=== PATIENT | male | born 2000 | race Caucasian/White ===

== ENCOUNTER 2023-10-21 13:08 | Emergency (ER) | payer OTHER, SELFPAY ==
[2023-10-21 13:11] VITALS: BP 136/85; BMI 27.4
--- NOTE | 2023-10-21 14:33 | ED.GENMED ---
History of Present Illness
General
Chief Complaint: Back Pain
Source: patient
Time Seen by Provider: 10/21/23 14:14
Travel History
Have you had any contact with someone who has COVID-19?: No
Do you have any symptoms of coronavirus? Fever > 100 degrees, chills, cough, shortness of breath, sore throat, loss of taste or smell, muscle aches, or headache?: No
History of Present Illness
History of Present Illness:
23-year-old male with past medical history of autism, schizophrenia and scoliosis presenting to the emergency department for evaluation of back pain that began mildly yesterday, today was worse with the patient noticing he had a small area of
redness to his lower back prompting him to come to the ER today. Patient states that he last took Tylenol around 11:30 AM without much relief. Patient is here with his mother who states her main concern is that patient has a history of urine
infections/kidney infection and was concerned that patient could be having this although he does not have any fevers or dysuria which is usually symptoms he gets with his action. Patient denies any chills, rigors, nausea or vomiting. He states he
cannot think of what may have caused his back pain as he denies any heavy lifting/bending/twisting. Patient is previously followed with [facility] for his scoliosis but it is unclear as to the last time when the patient saw them in follow-up.
Past History
Past History
ED Past Medical History: Psychiatric (Autism/schizophrenia)
ED Past Surgical History: Orthopedic
Social History
Tobacco: Non-smoker
Alcohol: None
Drug: None
Personal: Single
Living: with family
Review of Systems
Review of Systems
All Other Systems: ROS reviewed and negative except as documented in HPI and ROS
Phy Exam
Physical Exam
Physical Exam:
GENERAL: Alert , in no apparent distress
EYE: clear conjunctiva b/l
NECK: Supple
ENT: o/p clr, mmm.
BACK: Normal range of motion, diffusely tender paralumbar region bilateral, no midline bony tenderness, no rashes/erythema observed. Mother also notes that the area they noticed earlier today is seemingly now resolved
NEUROLOGICAL: Alert and oriented, no focal neuro deficits. Patellar deep tendon reflexes intact and equal bilaterally, sensation grossly intact and equal to light touch bilateral lower extremities, negative straight leg raise bilateral
SKIN: Warm and dry, skin intact.
MUSCULOSKELETAL: No edema, well perfused. EHL intact bilaterally
PSYCH: Normal and appropriate interaction.
Scores
Heart Failure Risk
Heart Failure Risk Score: Not Applicable
Heart Score for Chest Pain Patients
STEMI patient?: Not applicable
Withdrawal Assessment of Alcohol
Withdrawal Assessment Completed?: Not applicable
Course
Orders/Labs/Results
Orders:
Orders
10/21/23 14:25
Diazepam [Valium] 5 mg PO NOW STA
Ibuprofen [Motrin] 600 mg PO NOW STA
CR Lumbar Spine Comp Min 4 Vw* Urgent
Comment:
Reason For Exam: low back pain, hx scoliosis
10/21/23 15:27
Urinalysis Reflex To Culture Urgent
Date Specimen was Collected: 10/21/23
Time Specimen was Collected: 14:37
Urine Microscopic Reflex Cult Urgent
Urine Culture Urgent
BRIONNA Source: U
Specimen Description:
Date Specimen was Collected: 10/21/23
Time Specimen was Collected: 14:37
Abnormal Lab Results
10/21/23
15:27
Urine Bilirubin 1+ A
(Negative)
Leukocyte Esterase Rfl 1+ A
(Negative)
Urine Bacteria (Reflex) Few A
(Negative)
Vital Signs
Initial and Last Documented VS:
Initial Vital Signs
Temp Pulse Resp BP Pulse Ox
98.0 F 96 16 136/85 98
10/21/23 13:11 10/21/23 13:11 10/21/23 13:11 10/21/23 13:11 10/21/23 13:11
Last Documented Vital Signs
Temp Pulse Resp BP Pulse Ox
98.6 F 62 16 115/65 99
10/21/23 16:41 10/21/23 16:41 10/21/23 16:41 10/21/23 16:41 10/21/23 16:41
MDM/Problems Addressed
Differential Diagnosis Includes:
Exacerbation of scoliosis, lumbar strain, less concern for infectious etiology
MDM/Problems Addressed:
23-year-old male present emergency department for atraumatic back pain x 24 hours. Last took Tylenol around 11:30 AM with minimal relief. Pain does seem to be exacerbated with movement as well as palpation of the paralumbar region. Mother was
concerned for possible urine infection however given lack of symptoms I do feel this is less likely. Will check a urinalysis however. X-ray of the lumbosacral region ordered. Will treat with Motrin and Valium. Anticipate discharge home and
outpatient follow-up.
*Radiology
Radiology exam reviewed: preliminary read by ED provider (no fx)
*Pulse Oximetry
Patient hypoxic: no
*Critical Care Note
Total Time (30-74mins, 75-104mins- exclusive of procedures): Not Applicable
Patient Management
Escalation/DeEscalation of care consider admission/obs:
Imaging unremarkable and urinalysis without signs of infection. Culture had been sent. Patient will follow-up with primary care provider. Prescription for muscle relaxant provided. Continue with NSAIDs as needed for pain. Aware of return
precautions but otherwise stable for discharge home.
ED Attending Note
-
Portions of this chart may have been created with voice recognition software.� Occasional wrong word or��sound alike� substitutions may have occurred due to the inherent limitations of voice recognition software.
Discharge Plan
Departure
Patient Disposition: Home (Routine Discharge)
Date of Disposition: 10/21/23
Time of Disposition: 16:18
Patient with high blood pressure during this ER visit?: No
Discharge Problem:
Dorsalgia of thoracolumbar region
Instructions: Low Back Pain (DC)
Prescriptions:
New
cyclobenzaprine 5 mg tablet
5 mg PO BID PRN (Reason: muscle spasm) Qty: 8 0RF
Referrals:
Tyra Cunningham MD [Family Provider] -
Interventions
Interventions:
*Risk Screen - Suicide Last Done: 10/21/23 13:11
*General Assessment Last Done: 10/21/23 14:31
*Neglect/Abuse Screening Last Done: 10/21/23 13:11
ED- Fall Risk Assessment Last Done: 10/21/23 14:31
*ED COVID-19 Vaccine History Last Done: 10/21/23 13:11
*Nursing Disposition Last Done: 10/21/23 16:41
ED-Musculoskeletal Assessment Last Done: 10/21/23 14:31
Discharge Date and Time
Discharge Date/Time: 10/21/23 16:42
[2023-10-21] MEDS: MOTRIN 600 MG PO (14:38)
[2023-10-21] MEDS: VALIUM 5 MG PO (14:39)
[2023-10-21 16:08] LABS: Urine Albumin Trace (Neg - Trace); Urine Bilirubin 1+ (Negative); Urine Character Clear (Clear); Urine Color Yellow; Urine Glucose Negative (Negative); Urine Ketone Negative (Negative); Urine Leukocyte 1+ (Negative); Urine Nitrite Negative (Negative); Urine Occult Blood Negative (Negative); Urine Specific Gravity 1.015 (<1.030); Urine Urobilinogen 1+ (Neg - 1+)
[2023-10-21 16:26] LABS: Urine Bacteria Few (Negative); Urine Red Blood Cell 0-2 /HPF (0-2)
[2023-10-21 16:41] VITALS: BP 115/65
== END 2023-10-21 16:42 | disposition home or self-care (01) ==
LOC: EMR 13:08
PROVIDERS: Physician Assistant Medical; EMERGENCY PHYSICIAN Emergency Medicine; FAMILY PHYSICIAN Internal Medicine
DX: M54.6 Pain in thoracic spine (principal); F84.0 Autistic disorder; F20.9 Schizophrenia, unspecified; M41.9 Scoliosis, unspecified
CPT/HCPCS: 99284; 72110; 81003; 81015; 87086

== ENCOUNTER 2025-01-07 12:40 | Emergency (ER) | payer OTHER, SELFPAY ==
[2025-01-07 12:41] VITALS: BP 140/91
[2025-01-07 15:00] VITALS: BP 136/75
--- NOTE | 2025-01-07 15:09 | ED.GENMED ---
History of Present Illness
General
Chief Complaint: Breathing Problem
Source: patient
Exam Limitations: none
Time Seen by Provider: 01/07/25 13:40
Nursing documentation reviewed up to this point in time: agreed with
History of Present Illness
History of Present Illness:
pt is a 24 y/o M
h/o autism, functional, schizophrenia
here with elevated HR feeling for 4 days and then started with chest congesiton, cough, and pain in his chest with coughing
he says he feels SOB with walking as well
has h/o chronic nasal congestion, no relief with flonase and allergy med otc
has never seen ENT
but started telling mom his HR was high when he was walking around and he felt SOB
then got a cough 2 days ago
has never had asthma/smoking
pt has not had fever, syncope, le swelling, leg pain
fhx of factor v ledien in grandfather
Past History
Past History
ED Past Medical History: Psychiatric (Autism/schizophrenia)
ED Past Surgical History: Orthopedic
Social History
Tobacco: Non-smoker
Alcohol: None
Drug: None
Personal: Single
Living: with family
Review of Systems
Review of Systems
Allergies reviewed?: Yes
All Other Systems: Not applicable
Phy Exam
Physical Exam
Physical Exam:
GENERAL: Alert , in no apparent distress
EYE: pupils equal and reactive
NECK: Supple
ENT: b/l TM s clear, pharynx erythematous but no tonsillar hypertrophy or exudates
CARDIAC: Heart rate in the 90s to low 100s, no murmur appreciated, no edema
LUNGS: No tachypnea, frequent spastic cough with a deep breath, wheezy sounding cough but no otherwise wheezing on exam, no rales
ABDOMEN: Soft, without focal tenderness, no r/g, no cvat, normal bowel sounds
NEUROLOGICAL: Alert and oriented, no focal neuro deficits
SKIN: Warm and dry, skin intact.
MUSCULOSKELETAL: No edema, well perfused.
PSYCH: Normal and appropriate interaction.
Course
Orders/Labs/Results
Orders:
Orders
01/07/25 12:40
ECG [Electrocardiogram (*1)] Urgent
Reason for Study: Chest Pain
01/07/25 12:41
EKG- Treatment ONCE
01/07/25 14:17
Albuterol Nebs [Ventolin Nebules] 2.5 mg INH R NOW STA
01/07/25 15:08
COVID-19 Antigen Urgent
Source: Nasal Swab
Complete Blood Count/With Diff Urgent
Comprehensive Metabolic Panel Urgent
D-Dimer Urgent
Troponin I Urgent
01/07/25 15:40
CR Chest - 2 Views Urgent
Comment:
Reason For Exam: cough, sob
01/07/25 16:27
Dexamethasone Sod Phosphate [Decadron] 10 mg IV NOW STA
Abnormal Lab Results
01/07/25
15:08
RBC 4.69 L 10^6/uL
(4.70-6.10)
Hct 37.8 L %
(39.0-52.0)
Absolute Monos (auto) 0.7 H 10^3/uL
(0.1-0.6)
Monocytes % 12.3 H %
(1.7-9.3)
Chloride 109 H mmol/L
(98-107)
ALT 123 H U/L
(0-50)
01/07/25 15:08
01/07/25 15:08
Vital Signs
Initial and Last Documented VS:
Initial Vital Signs
Temp Pulse Resp BP Pulse Ox
37.0 C 107 15 140/91 96
01/07/25 12:41 01/07/25 12:41 01/07/25 12:41 01/07/25 12:41 01/07/25 12:41
Last Documented Vital Signs
Temp Pulse Resp BP Pulse Ox
36.4 C 81 19 122/79 96
01/07/25 15:27 01/07/25 16:30 01/07/25 16:30 01/07/25 16:21 01/07/25 16:30
MDM/Problems Addressed
Differential Diagnosis Includes:
URI, bronchitis, asthma,
MDM/Problems Addressed:
24y/o M with h/o autism
felt a little short of breath/herat beat was fast for the past few days, no fever, no pain
then developed cough and has pain with coughing ,not brathing
he doesn't feel sob at rst
well appearing
hr low 100s, no fever
end exp wheezing with cough when takes deep breath
no recent travel or h/o DVT/PE, surgeries
not hypxoici
suspect asthmatic bronchtis, pt had asthma as kid
d dimer neg
ekg nonischemic
no pericarditids
trop neg
wbc normal
cxr indep reviewed and clear
d/c home with dex in 48 hours, albuterol neb and
hold abx if still symptmatic, starat zpak
*Critical Care Note
Total Time (30-74mins, 75-104mins- exclusive of procedures): Not Applicable
ED Attending Note
-
Portions of this chart may have been created with voice recognition software.� Occasional wrong word or��sound alike� substitutions may have occurred due to the inherent limitations of voice recognition software.
Discharge Plan
Departure
Patient Disposition: Home (Routine Discharge)
Date of Disposition: 01/07/25
Time of Disposition: 16:27
Patient with high blood pressure during this ER visit?: No
Condition: Fair
Covid-19: Not Applicable
Discharge Problem:
Acute bronchitis
Instructions: Acute Bronchitis, Adult (DC)
Prescriptions:
New
dexamethasone 6 mg tablet
6 mg PO ONCE Qty: 1 0RF
albuterol sulfate 2.5 mg /3 mL (0.083 %) solution for nebulization
2.5 mg inhalation Q6H PRN (Reason: bronchospasm) Qty: 75 0RF
azithromycin [Zithromax Z-Jin] 250 mg tablet
See Rx Instructions .ROUTE .COMPLEX Qty: 6 0RF
Rx Instructions:
TAKE 2 TABS PO DAY 1 THEN 1 TAB PO DAILY X 4 DAYS
No Action
cyclobenzaprine 5 mg tablet
5 mg PO BID PRN (Reason: muscle spasm) Qty: 8 0RF
Referrals:
Tyra Cunningham MD [Family Provider, Internal Medicine]
Activity Restrictions/Additional Instructions:
USE THE NEBULIZER EVERY 4-6 HOURS FOR THE COUGH
YOU WERE GIVEN A DOSE OF STEROIDS TO HELP WITH THE COUGH AND WHEEZING
TAKE THE 2ND DOSE ON WEDNESDAY MORNING.
IF YOU ARE STILL COUGHING BY WEDNESDAY YOU CAN START THE ZITHROMAX ZPAK (ANTIBIOTIC)
SEE YOUR DOCTOR THIS WEEK
RETURN FOR: SEVERE CHEST PAIN, WORSE SHORTNESS OF BREATH, PASSING OUT, HIGH FEVER, WHEEZING OR ANY CONCERNS.
Interventions
Interventions:
*Risk Screen - Suicide Last Done: 01/07/25 12:41
*General Assessment Last Done: 01/07/25 12:41
*Neglect/Abuse Screening Last Done: 01/07/25 12:41
*ED- Fall Risk Assessment Last Done: 01/07/25 15:25
*ED COVID-19 Vaccine History Last Done: 01/07/25 15:25
ED- Cardiac Assessment Last Done: 01/07/25 15:25
ED- Pulmonary Assessment Last Done: 01/07/25 15:25
Discharge Date and Time
Print Language: JAPANESE
[2025-01-07 15:14] LABS: % Basophils 1.2 % (0-2); % Eosinophils 4.2 % (0-6); % Immature Granulocytes 0.4 % (0-0.5); % Lymphocytes 25.4 % (20.5-51.1); % Monocytes 12.3 % (1.7-9.3); % Neutrophils 56.5 % (42.2-75.2); Absolute Basophils 0.1 10^3/uL (0-0.2); Absolute Eosinophils 0.2 10^3/uL (0-0.7); Absolute Lymphocytes 1.4 10^3/uL (1.2-3.4); Absolute Monocytes 0.7 10^3/uL (0.1-0.6); Absolute Neutrophils 3.2 10^3/uL (1.4-6.5); Hematocrit 37.8 % (39.0-52.0); Hemoglobin 13.3 g/dL (13.0-18.0); Mean Corp Hgb Conc. 35.2 g/dL (33.0-37.0); Mean Corpuscular Hgb 28.4 pg (27.0-31.0); Mean Corpuscular Volume 80.6 fL (80.0-94.0); Mean Platelet Volume 9.2 fL (7.4-10.4); Nucleated Red Blood Cells % 0 % (-); Platelet Count 249 10^3/uL (130-400); Red Blood Cell Count 4.69 10^6/uL (4.70-6.10); Red Cell Dist. Width 13.2 % (11.5-14.5); White Blood Cell Count 5.7 10^3/uL (4.8-10.8)
[2025-01-07] MEDS: VENTOLIN NEBULES 2.5 MG INH (15:22)
[2025-01-07 15:28] VITALS: BMI 35.4
[2025-01-07 15:31] LABS: ALT (SGPT) 123 U/L (0-50); AST (SGOT) 52 U/L (17-59); Albumin 4.4 g/dl (3.5-5.0); Alkaline Phosphatase 81 U/L (38-126); Blood Urea Nitrogen 12 mg/dl (9-20); Calcium 9.2 mg/dl (8.4-10.2); Carbon Dioxide 23 mmol/L (22-30); Chloride 109 mmol/L (98-107); Estimated Creatinine Clearance > 125 ml/min; Glucose 97 mg/dl (70-99); Potassium 4.3 mmol/L (3.5-5.1); Sodium 141 mmol/L (135-145); Total Bilirubin 0.4 mg/dl (0.2-1.3); Total Protein 7.3 g/dl (6.3-8.2); eGFR > 60.00
[2025-01-07 15:33] LABS: D-Dimer 0.33 ug/mlFEU (0.00-0.50)
[2025-01-07 15:43] LABS: Troponin I < 0.012 ng/ml
[2025-01-07 15:44] LABS: COVID-19 Antigen Negative (Negative)
[2025-01-07 16:21] VITALS: BP 122/79
[2025-01-07] MEDS: DECADRON 10 MG IV (16:59)
[2025-01-07 17:00] VITALS: BP 117/86
== END 2025-01-07 17:47 | disposition home or self-care (01) ==
LOC: EMR 12:40
PROVIDERS: Physician Assistant; EMERGENCY PHYSICIAN Emergency Medicine; FAMILY PHYSICIAN Internal Medicine
DX: J20.9 Acute bronchitis, unspecified (principal); F84.0 Autistic disorder; F20.9 Schizophrenia, unspecified; Z11.52 Encounter for screening for COVID-19
CPT/HCPCS: 99285; 96374; 94640; 71046; 80053; 84484; 85025; 85379; 87811; 93005